=== PATIENT | female | born 1995 | race Caucasian/White ===

== ENCOUNTER 2017-04-05 10:07 | Emergency (ER) | payer OTHER ==
[~2017-04-05] VITALS: Ht 167.6 cm; Wt 131.8 kg
[~2017-04-05 10:07] MED LIST: AMOX250C PO; Benzocaine TOPICAL; Hydrocodone/Acetaminophen PO; Ibuprofen PO; Lanolin TOPICAL; TUCPAD TOPICAL
[2017-04-05 10:24] VITALS: BP 116/72; PULSE 95; RESP 16; O2SAT 98
--- NOTE | 2017-04-05 10:48 | ED.REPORT ---
HPI-Preg Under 20 Weeks Date of Service Apr 05, 2017 ED Provider: History of Present Illness: started vaginal bleeding yesterday. Started light and now heavier with increasing cramping. OB stickle SRC 2 pregancy. 5 weeks by US on Wednesday. Also c/o of sore throat with tongue and throat swelling. Seen at [facility] yesterday, negative strep per her report. Nursing Notes Stated Complaint: 5 WEEKS /HEAVY BLEEDING Chief Complaint: Female Abdominal Pain Nursing Notes Reviewed: Yes Allergies: Coded Allergies: No Known Allergies (Unverified Allergy, Unknown, 03/04/14) Scheduled Amoxicillin (Amoxicillin) 250 Mg Capsule 250 MG PO TID Scheduled PRN ([Benzocaine]) 1 SPRAY/GM SPRAY 1 SPRAY TOPICAL PRN PRN PRN for perineal pain ([Ibuprofen]) 800 MG TABLET 800 MG PO Q6H PRN PRN For Pain ([Lanolin]) 14 APPLIC/7 GM OINT 1 APPLIC TOPICAL PRN PRN PRN apply to nipples ([Hydrocodone/Acetaminophen]) 1 TAB TABLET 1-2 TAB PO Q4H PRN PRN For Pain Witch Garima/Glycerin (A.e.r Pads) 12 Towelette/Pkg Towelette 1 TOWELETTE TOPICAL PRN PRN PRN for perineal pain General Time Seen by Provider: 10:48 Chief Complaint Vaginal bleeding, Other (sore throat with tongue and throat swelling) Hx Obtained From: Patient Onset Occurred: Yesterday Past Medical History Past Medical History Denies: Asthma, Diabetes mellitus Past Surgical History denies Smoking History Former Smoker (quit in 2013) Social History Alcohol Use: Denies alcohol use Drug Use: Denies drug use Occupation lives with boyfriend. work at [employer] in [place] [employer] 04/05/2017 Ambulatory Status Independent Review of Systems Basic Review of Systems ENT: Hearing NL, No pain, No nasal congestion, No pharyngeal pain Psychiatric: Normal thought content Physical Exam Initial Vital Signs Vital Signs (First) Date Time Temp Pulse Resp B/P Pulse Ox O2 Delivery O2 Flow Rate FiO2 04/05/17 10:24 36.8 95 16 116/72 98 04/05/17 13:29 Room Air Initial VS: Reviewed, Vital signs normal Head / Eyes: Atraumatic, Normocephalic, PERRL ENT: Mucous membranes moist, Conjunctiva normal, No scleral icterus Neck: Supple, Non-tender, Full range of motion Respiratory: Breath sounds normal, Clear to auscultation, No respiratory distress Cardiovascular: Regular rate & rhythm, Heart sounds normal, Intact distal pulses Back: No CVA tenderness Lymphatic: No lymphadenopathy Extremities: Vascular intact, Neuro intact, No swelling, No tenderness Skin: Warm, Dry, No cyanosis Neurologic: Alert, Oriented, Nonfocal Psychiatric: Mood/affect normal, Behavior normal, Normal thought content General/Constitutional: Awake, Alert, No acute distress, Well appearing, Well developed, Well hydrated Abdomen: Atraumatic, Soft, Non-tender, McBurney's non-tender Female Genitourinary: Probation Worker present, Atraumatic, External genitalia NL Vaginal Bleeding / Discharge: Positive: Bleeding mild throat with erthyma and enlarged uvula Respiratory / Chest: Atraumatic Wheezing / Retractions: Positive: Wheezing mild Cardiovascular: Heart rate NL, Regular rhythm, Heart sounds NL, No gallop Back: Atraumatic, Inspection NL, Full range of motion, Painless range of motion Neurologic: Oriented X3, Speech NL, No motor deficits, No sensory deficits, CN II - XII intact Interpretation & Diagnostics Lab Results Interpretation Result Diagram: 04/05/17 1100 Test 04/05/17 11:00 04/05/17 11:20 White Blood Count 9.5th/mm3 (3.8-10.1) Red Blood Count 4.87mil/mm3 (3.90-5.20) Hemoglobin 13.1g/dL (12.0-15.6) Hematocrit 39.8% (35.0-46.0) Mean Corpuscular Volume 81.7fL (81-100) Mean Corpuscular Hemoglobin 26.9pg (27.0-35.0) Mean Corpuscular Hemoglobin Concent 32.9% (32.0-37.0) Red Cell Distribution Width 14.0% (12.3-15.4) Platelet Count 253bil/L (150-400) Neutrophils (%) (Auto) 71.4% (40-74) Lymphocytes (%) (Auto) 15.7% (14-46) Monocytes (%) (Auto) 11.1% (4-12) Eosinophils (%) (Auto) 1.1% (0-5) Basophils (%) (Auto) 0.4% (0-3) HCG Beta Subunit 536.9mIU/mL Urine Color Dark yellow (YELLOW) Urine Appearance Hazy (CLEAR,HAZY) Urine pH 5.5 (5.0-8.0) Urine Specific [place] 1.025 (1.003-1.035) Urine Protein 100mg/dL (NEG,TRACE) Urine Glucose (UA) Negativemg/dL (NEGATIVE) Urine Ketones Negativemg/dL (NEGATIVE) Urine Occult Blood Large (NEGATIVE) Urine Nitrite Negative (NEGATIVE) Urine Bilirubin Negative (NEGATIVE) Urine Urobilinogen Normalmg/dL (NORMAL) Urine Leukocyte Esterase Trace (NEGATIVE) Urine RBC 0-2/hpf (0-2) Urine WBC 6-10/hpf (0-5) Urine Epithelial Cells Occasional/hpf (NONE-MOD) Urine Crystals None seen (NONE SEEN) Urine Bacteria Moderate/hpf (NONE-FEW) Urine Hyaline Casts None/lpf (NONE) Urine Granular Casts None seen (NONE SEEN) Urine Waxy Casts None seen (NONE SEEN) Urine Red Blood Cell Casts None seen (NONE SEEN) Urine White Blood Cell Casts None seen (NONE SEEN) Urine Mucus Present (None Seen) Urine Trichomonas None seen (NONE SEEN) Urine Yeast None (NONE SEEN) Urinalysis Comment None Urine Culture Reflexed Indicated US Focused OB INDICATIONS: bleeding TECHNIQUE: Real-time scanning was performed of the pelvic organs, with image documentation. Additional endovaginal scanning was necessary due to incomplete visualization of the adnexal and endometrial structures by transabdominal scanning. COMPARISON: None. FINDINGS: Transabdominal scanning: Limited scanning through the kidneys shows no hydronephrosis. No pathologic free abdominal or pelvic fluid. Endovaginal scanning: Uterus: Uterus is normal in size at 4.8 x 3.7 x 8.6 cm, anteverted. The endometrium measures 9.1 mm in combined thickness. There appears to be likely clot at the margin of the internal os of the cervical canal and throughout the entire uterus a definite intrauterine gestation seen. Ovaries: Right ovary and left ovary appear normal in size and echotexture. IMPRESSION: The clinical history indicates patient, bleeding. At the area adjacent to the internal os of the cervical canal there is a region of heterogeneous material that measures up to 1.5 x 1.3 x 1.1 cm, considered most likely to represent clot in this clinical circumstance. Close clinical followup is recommended. No pneumoperitoneum is suspected. Ovaries appear normal. An intrauterine gestation. Correlation with quantitative beta-hCG appears warranted to determine whether a viable intrauterine gestation should be visible in this clinical circumstance. Ectopic has not yet been fully excluded. Dictated by: Tim Dobbins M.D. on 04/05/2017 at 12:43 Approved by: Tim Dobbins M.D. on 04/05/2017 at 12:47 Re-Eval/Medical Decision Med Decision/Clinical Course 21 year old female presents for evualation of vaginal bleeding. Quant is at 536, exam indicates bleeding, no sign of hemmorraghe. Uvula is enlarged and erthymatous. Airway intact. US does not clearly indicate an IUP. Patient reports last Wednesday an US was done and It was noted to be an IUP at that time. Patient with improvement after nebulizer. Exam consistent with spontanous miscarriage, no sign of ectopic or molar Discharge & Departure Primary Impression: Spontaneous Additional Impressions: Wheezing Uvulitis Disposition: Home Patient Instructions: Miscarriage (ED), Uvulitis (ED), Wheezing (ED) Additional Instructions: Your cbc is normal. Your HCG is at 536. The ultrasound does not show any sign of . The nebulizer has greatly decreased yoour wheezing. Exam of you throat indicates a swollen uvula. Start prednisone 40 mg daily for 3 days then 30 mg daily for 3 days then 20 mg daily for 3 days then 10 mg daily for 3 days. Start azithromycin 2 pills today then 1 daily on the next 4 days. Can use hydrocodone if needed for severe unrelenting pain. # 6 provided. Please follow with Dr. Benson for a repeat HCG on Wednesday. Please call his office and let them know what has happened. I am very sorry this has happened. Referrals: Claudia Aponte (PCP) Sandra Benson MD EDSupervising Provider for APC: Narciso Rodriguez MD copies to: Claudia Aponte; Sandra Benson MD, Sue ARNP Apr 05, 2017 10:48
[2017-04-05] MEDS ORDERED: Albuterol 2.5 mg/3 mL Inhalation Solution NEB ONE (11:00)
[2017-04-05 11:23] LABS: BASOPHILS % (AUTO) 0.4 % (0-3); EOSINOPHILS % (AUTO) 1.1 % (0-5); MONOCYTES % (AUTO) 11.1 % (4-12); Mean Corpuscular Hemoglobin 26.9 pg (27.0-35.0); Mean Corpuscular Volume 81.7 fL (81-100); NEUTROPHILS % (AUTO) 71.4 % (40-74); Platelet Count 253 bil/L (150-400)
[2017-04-05 12:13] LABS: APPEARANCE,URINE HAZY (CLEAR,HAZY); COLOR,URINE DARK YELLOW (YELLOW); OCCULT BLOOD,URINE LARGE (NEGATIVE); PH,URINE 5.5 (5.0-8.0)
[2017-04-05 12:16] LABS: UROBILINOGEN,URINE NORMAL (NORMAL)
--- NOTE | 2017-04-05 12:49 | DRSVH ---
PROCEDURE: US PELVIC SONOGRAM + TRANSVAGINAL SONOGRAM INDICATIONS: bleeding TECHNIQUE: Real-time scanning was performed of the pelvic organs, with image documentation. Additional endovagi nal scanning was necessary due to incomplete visualization of the adnexal and endometrial structures by transabdominal scanning. COMPARISON: None. FINDINGS: Transabdominal scanning: Limited scanning through the kidneys shows no hydronephrosis. No pathologi c free abdominal or pelvic fluid. Endovaginal scanning: Uterus: Uterus is normal in size at 4.8 x 3.7 x 8.6 cm, anteverted. The endometrium measures 9.1 mm in combined thickness. There appears to be likely clot at the margin of the internal os of the cerv ical canal and throughout the entire uterus a definite intrauterine gestation seen. Ovaries: Right ovary and left ovary appear normal in size and echotexture. IMPRESSION: The clinical history indicates patient, bleeding. At the area adjacent to the i nternal os of the cervical canal there is a region of heterogeneous material that measures up to 1.5 x 1.3 x 1.1 cm, considered most likely to represent clot in this clinical circumstance. Close clinical followup is recommended. No pneumoperitoneum is suspected. Ovaries appear normal. A n intrauterine gestation. Correlation with quantitative beta-hCG appears warranted to determine whet her a viable intrauterine gestation should be visible in this clinical circumstance. Ectopic pregnan cy has not yet been fully excluded. Dictated by: Tim Dobbins M.D. on 04/05/2017 at 12:43 Approved by: Tim Dobbins M.D. on 04/05/2017 at 12:47
[2017-04-05 13:29] VITALS: PULSE 96; RESP 16; O2SAT 98
== END 2017-04-05 14:09 | disposition home or self-care (01) ==
LOC: SED 10:07
DX: O03.9 Complete or unspecified spontaneous abortion without complication (principal); R06.2 Wheezing; K12.2 Cellulitis and abscess of mouth
CPT/HCPCS: 36415; 76830; 76856; 81000; 81025; 84702; 85025; 87086; 87088; 94664; 99285; J7613